=== PATIENT | female | born 2000 | race Caucasian/White ===

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

== ENCOUNTER → 2021-02-03 18:08 | Outpatient (BNVA) | payer MEDICAID, SELFPAY | PROVIDERS: Visit Provider Registered Nurse Neonatal Intensive Care | DX: N39.0 Urinary tract infection, site not specified (principal); R39.9 Unspecified symptoms and signs involving the genitourinary system | CPT/HCPCS: 81000 ==

== ENCOUNTER → 2021-03-26 18:54 | Outpatient (BNVA) | payer MEDICAID, SELFPAY | PROVIDERS: Visit Provider Nurse Practitioner | DX: N39.0 Urinary tract infection, site not specified (principal) | CPT/HCPCS: 81000 ==

== ENCOUNTER → 2021-09-07 19:02 | Outpatient (BNVA) | payer MEDICAID, SELFPAY | PROVIDERS: Visit Provider Nurse Practitioner | DX: J32.9 Chronic sinusitis, unspecified (principal); B96.89 Other specified bacterial agents as the cause of diseases classified elsewhere | CPT/HCPCS: 87400 ==

== ENCOUNTER → 2021-10-25 15:21 | Outpatient (BNVA) | payer MEDICAID, SELFPAY | PROVIDERS: Visit Provider Registered Nurse Neonatal Intensive Care | DX: N39.0 Urinary tract infection, site not specified (principal) | CPT/HCPCS: 81000 ==

== ENCOUNTER 2021-11-01 22:20 | Emergency (ER) | payer MEDICAID, SELFPAY ==
[2021-11-01 22:22] VITALS: BP 125/70; PULSE 103; RESP 18; TEMP 37.1; O2SAT 98
--- NOTE | 2021-11-01 23:41 | ED_ITS ---
HPI - Skin/Abscess/Foreign Bdy General: Chief complaint: Skin/Abscess/Foreign Body Stated complaint: Rash Time Seen by Provider: 11/01/21 23:41 History of Present Illness: Patient comes in for itchy rash that started this evening when she was getting ready for bed. Patient appears mildly unwell but not toxic. Patient is managing her airway. Patient appears in no pain. Associated symptoms: Deny fever(s), nausea or vomiting Review of Systems General: Reports: 10 or more systems reviewed and unremarkable except in HPI and below Const: Denies: fever(s) Card: Denies: chest pain Resp: Denies: dyspnea GI: Denies: nausea or vomiting Skin/Breast: Reports: rash and pruritus PFSH ED PFSH: Family History Mother Diabetes Psychiatric illness Depression Chronic kidney disease (CKD) Hypertension Grandmother No problems noted. Family/Other Stroke maternal aunt Heart disease maternal aunt Denies family history of Colon cancer Ovarian cancer Clotting disorder Hyperlipidemia Breast cancer Anesthesia complication Bleeding disorder Uterine cancer Thyroid condition Social History Smoking and tobacco status: never smoked Second hand smoke exposure: No Alcohol intake: never Desire information about substance/drug rehabilitation?: No Female Reproductive History: Date of last menstrual period: 10/24/21 Physical Exam Const: COMMON NORMALS: alert HENMT: COMMON NORMALS: normocephalic HEAD & SCALP: normocephalic Neck/C-Spine: COMMON NORMALS: full ROM Resp: COMMON NORMALS: normal respiratory effort and clear to auscultation bilaterally AUSCULTATION: clear to auscultation bilaterally Cardio: COMMON NORMALS: regular rate RATE: regular rate Extremity: COMMON NORMALS: normal to inspection Neuro: SENSORIUM/ORIENTATION: Yes alert Skin: RASHES: rashes noted (Urticaria generalized) Course Vital Signs: Vital signs: Vital Signs Temperature 98.8 F 11/01/21 22:22 Pulse Rate 103 H 11/01/21 22:22 Respiratory Rate 18 11/01/21 22:22 Blood Pressure 125/70 11/01/21 22:22 Pulse Oximetry 98 11/01/21 22:22 MDM - Skin/Abscess/Foreign Bdy Medicial Decision Making 21-year-old female comes in today with complaints of itchy rash. Patient states that she had just completed a course of antibiotics and antiviral medication about 3 days ago. Patient states tonight she was getting ready for bed when she started itching. On exam patient has a urticarial rash. The rash is prominent to the abdomen forearms and upper legs. Respirations are even lungs are clear to auscultation. Patient is managing airways without difficulty. Patient denies any nausea or vomiting. Differential diagnosis includes urticaria, adverse drug reaction, anaphylaxis. No signs of anaphylaxis were noted at this time. It appears to be mainly urticarial rash. We will go ahead and treat with antihistamine and recommend calamine and avoidance of heat and spicy foods. Patient reported understanding of care plan, and recommendations to avoid Macrobid in the future. Discharge Plan Discharge Patient Disposition: Home Clinical Impression: Urticaria Adverse drug reaction Qualifiers: Encounter type: initial encounter Qualified Code(s): T50.905A - Adverse effect of unspecified drugs, medicaments and biological substances, initial encounter Condition: Stable Prescriptions: New hydroxyzine HCl 25 mg tablet 25 mg PO Q6H PRN (Reason: itching) Qty: 20 0RF Discontinued nitrofurantoin monohyd/m-cryst [Macrobid] 100 mg capsule 100 mg PO BID 5 Days Qty: 10 0RF Rx Instructions: must administer with a meal/food No Action Tucks (witch myra) 50 % pads, medicated 1 pad topical DAILY PRN (Reason: skin cleansing) Qty: 40 0RF acyclovir 400 mg tablet 400 mg PO TID 10 Days Qty: 30 0RF Discharge Orders: Discharge ED (Routine); Ordered 11/01/21 Ordered By: Umer Erickson Activity Restrictions/Additional Instructions: Most likely this is a reaction to the antibiotic you are on last week for your urinary tract infection. I would avoid this antibiotic in the future for recurrent reaction. Use hydroxyzine 1 tablet 4 times a day as needed for itching. Avoid spicy foods, hot showers, and other extreme temperatures in order to avoid discomfort. Use calamine lotion otherwise for comforting rash. Follow-up with primary care for further instruction. Return to ER for new concerns. Coding Level of Care Code ED Underwriting Consultant for Saul Ch
[2021-11-01] MEDS: diphenhydrAMINE 50 mg Capsule PO (23:54)
[2021-11-02 00:25] VITALS: BP 121/74; PULSE 97; RESP 18; TEMP 36.7; O2SAT 98
== END 2021-11-02 00:30 | disposition home or self-care (01) ==
PROVIDERS: Emergency Provider Nurse Practitioner Family
DX: L50.9 Urticaria, unspecified (principal); T37.8X5A Adverse effect of other specified systemic anti-infectives and antiparasitics, initial encounter
CPT/HCPCS: 99283; Q0163

== ENCOUNTER 2022-11-04 23:05 | Emergency (ER) | payer MEDICAID, SELFPAY ==
[2022-11-04 23:27] VITALS: BP 123/82; PULSE 96; RESP 14; TEMP 36.7; O2SAT 100; BMI 40.0
[2022-11-04 23:59] LABS: Basophils # 0.1 10^3/uL (0.0-0.1); Basophils % 0.7 %; Eosinophils # 0.2 10^3/uL (0.0-0.8); Eosinophils % 2.1 %; Hematocrit 41.4 % (37.0-47.0); Hemoglobin 12.9 g/dL (11.5-15.3); Lymphocytes # 2.5 10^3/uL (0.8-4.8); Lymphocytes % 24.2 %; Mean Corpuscular HGB Conc 31.2 g/dL (30.0-36.0); Mean Corpuscular Hemoglobin 27.1 pg (28.0-34.0); Mean Platelet Volume 9.9 fL (7.4-10.4); Monocytes # 0.6 10^3/uL (0.2-0.9); Monocytes % 5.6 %; Neutrophils # 7.01 10^3/uL (1.8-7.7); Neutrophils % 67.1 %; Nucleated Red Blood Cells % 0 %; Platelet Count 289 10^3/cmm (130-400); Red Blood Count 4.76 10^6/uL (4.1-5.3); Red Cell Distribution Width 13.4 % (12.1-15.1); White Blood Count 10.5 10^3/uL (4.0-10.0)
--- NOTE | 2022-11-05 | CTR_ITS ---
PROCEDURE INFORMATION: Exam: CT Abdomen And Pelvis With Contrast Exam date and time: 11/05/2022 12:33 AM Age: 22 years old Clinical indication: Abdominal pain; Localized; Patient HX: C/O worsening lower abd pain since having bm earlier today. TECHNIQUE: Imaging protocol: Computed tomography of the abdomen and pelvis with contrast. Radiation optimization: All CT scans at this facility use at least one of these dose optimization techniques: automated exposure control; mA and/or kV adjustment per patient size (includes targeted exams where dose is matched to clinical indication); or iterative reconstruction. Contrast material: OMNI 350; Contrast volume: 100 ml; Contrast route: INTRAVENOUS (IV); REPORTING DATA: Count of CT and Cardiac NM exams in prior 12 months: This patient has received 0 known CTs and 0 known cardiac nuclear medicine studies in the 12 months prior to the current study. COMPARISON: US OB BPP wo NST [id number] 12/06/2019 9:47 AM RADIATION DOSE METRICS: Total DLP (mGy-cm): 1036.73 FINDINGS: Lungs: The visualized lung bases are clear. Liver: Unremarkable. No enhancing mass. Gallbladder and bile ducts: No calcified gallstones or biliary dilation identified. Pancreas: Unremarkable with no suspicious mass. No ductal dilation. Spleen: The spleen is not enlarged. No suspicious enhancing mass is noted. Adrenal glands: Normal. No mass. Kidneys and ureters: No solid renal mass or hydronephrosis. Stomach and bowel: No small bowel obstruction or free air. No overt mucosal thickening. The colon is rather fecal filled. Appendix: No evidence of appendicitis. Intraperitoneal space: There is small to moderate pelvic somewhat complex free fluid. Vasculature: No AAA or acute vascular lesion identified. Lymph nodes: No enlarged lymph nodes. Urinary bladder: Unremarkable as visualized. Reproductive: Right ovarian cystic lesion measures about 3 cm. Bones/joints: No acute fracture. Soft tissues: Tiny fat umbilical hernia. CT/CT abdomen pelvis w con* [id number] IMPRESSION: 1. Right ovarian hemorrhagic cyst or follicle with small to moderate complex pelvic free fluid or blood products. If pain persists recommend short-term ultrasound follow-up. 2. No small bowel obstruction, abscess or free air. 3. The colon is rather fecal filled.
--- NOTE | 2022-11-05 00:08 | ED_ITS ---
HPI - Abdominal Pain General: Chief Complaint: Abdominal Pain Stated Complaint: abdomen pain Time Seen by Provider: 11/04/22 23:08 Source: patient Mode of arrival: ambulatory Limitations: no limitations History of Present Illness: 22-year-old female states that she had to start having abdominal pain this evening states it was epigastric and right lower quadrant she thought she may be constipated took some laxative had a bowel movement states that she still has severe pain states much worse with movement she rates her pain a 7 out of 10 denies any dysuria denies any vaginal bleeding she denies any fevers. Associated Symptoms: Denies chills, diarrhea, dysuria, fever(s), nausea and vomiting Review of Systems Const: Denies: fever(s), chills, body aches or change in appetite Eyes: Denies: blurry vision or eye discomfort ENMT: Denies: throat pain or dental pain Card: Denies: chest pain Resp: Denies: dyspnea GI: Reports: abdominal pain; Denies: nausea, vomiting or diarrhea : Denies: dysuria Musc: Denies: neck pain or back pain Skin/Breast: Denies: rash Neuro: Denies: headache(s) PFSH ED PFSH: Family History Mother Diabetes Psychiatric illness Depression Chronic kidney disease (CKD) Hypertension Grandmother No problems noted. Family/Other Stroke maternal aunt Heart disease maternal aunt Denies family history of Colon cancer Ovarian cancer Clotting disorder Hyperlipidemia Breast cancer Anesthesia complication Bleeding disorder Uterine cancer Thyroid condition Social History Smoking and tobacco status: never smoked Second hand smoke exposure: No Alcohol intake: never Substance/Drug Use: never Desire information about substance/drug rehabilitation?: No Physical Exam Const: COMMON NORMALS: no acute distress, patient oriented x3 and healthy appearing HENMT: COMMON NORMALS: normocephalic and atraumatic HEAD & SCALP: normocephalic and atraumatic Eye: COMMON NORMALS: conjunctivae normal CONJUNCTIVA: Yes conjunctivae normal Neck/C-Spine: COMMON NORMALS: full ROM and supple Chest: COMMONS NORMALS: normal inspection of the chest and normal palpation of entire chest wall Resp: COMMON NORMALS: normal respiratory effort, No retractions, No use of accessory muscles and clear to auscultation bilaterally AUSCULTATION: clear to auscultation bilaterally Cardio: COMMON NORMALS: regular rate, regular rhythm and No murmurs present (Cardio) RATE: regular rate RHYTHM: regular rhythm GI: COMMON NORMALS: Normal to inspection, nondistended, normoactive bowel sounds present, Soft to palpation and no masses PALPATION: Yes Soft to palpation OTHER: suprapubic tenderness Extremity: COMMON NORMALS: normal to inspection and full ROM Neuro: COMMON NORMALS: patient oriented x3, moves all extremities and no focal motor deficits Psych: COMMON NORMALS: mental status grossly normal, Normal thought process present and cooperative THOUGHT PROCESS: Normal thought process present Skin: COMMON NORMALS: no rashes or lesions noted and no wounds GENERAL SKIN EXAM: no rashes or lesions noted Course Vital Signs: Vital signs: Vital Signs Temperature 98.1 F 11/05/22 05:07 Pulse Rate 96 11/05/22 05:07 Respiratory Rate 16 11/05/22 05:07 Blood Pressure 118/71 11/05/22 05:07 Pulse Oximetry 96 11/05/22 05:07 Oxygen Delivery Me thod Room Air 11/04/22 23:27 MDM - Abdominal Pain Medical Decision Making Patient presents here with abdominal pain she is found to have a hemorrhagic cyst on CT and ultrasound no signs of torsion her pain has improved ER spoke to OB Dr. Howard with plan of patient having close follow-up he was seen in the office today or tomorrow I did inform her of this informed to call the office and see within 1 to 2 days. She is return if worsening she understands agrees to plan. Medical Records I reviewed the patient's medical records. Lab Data I reviewed the patient's lab results. 11/04/22 23:48 11/04/22 23:48 Labs/Radiology: Radiology Impressions Abdomen/Pelvis CT 11/05/22 00:00 IMPRESSION: 1. Right ovarian hemorrhagic cyst or follicle with small to moderate complex pelvic free fluid or blood products. If pain persists recommend short-term ultrasound follow-up. 2. No small bowel obstruction, abscess or free air. 3. The colon is rather fecal filled. Pelvis Ultrasound 11/05/22 03:58 IMPRESSION: 1. Right ovarian probable 3.6 cm hemorrhagic cyst with associated small to moderate complex pelvic free fluid/blood. Advise appropriate follow-up as indicated. 2. Negative left ovary and uterus. Laboratory Results WBC 10.5 10^3/uL (4.0-10.0) H 11/04/22 23:48 RBC 4.76 10^6/uL (4.1-5.3) 11/04/22 23:48 Hgb 12.9 g/dL (11.5-15.3) 11/04/22 23:48 Hct 41.4 % (37.0-47.0) 11/04/22 23:48 MCV 87.0 fl (81-99) 11/04/22 23:48 MCH 27.1 pg (28.0-34.0) L 11/04/22 23:48 MCHC 31.2 g/dL (30.0-36.0) 11/04/22 23:48 RDW 13.4 % (12.1-15.1) 11/04/22 23:48 Plt Count 289 10^3/cmm (130-400) 11/04/22 23:48 MPV 9.9 fL (7.4-10.4) 11/04/22 23:48 Neut % (Auto) 67.1 % 11/04/22 23:48 Lymph % (Auto) 24.2 % 11/04/22 23:48 [place] % (Auto) 5.6 % 11/04/22 23:48 Eos % (Auto) 2.1 % 11/04/22 23:48 Baso % (Auto) 0.7 % 11/04/22 23:48 Neut # (Auto) 7.01 10^3/uL (1.8-7.7) 11/04/22 23:48 Lymph # (Auto) 2.5 10^3/uL (0.8-4.8) 11/04/22 23:48 [place] # (Auto) 0.6 10^3/uL (0.2-0.9) 11/04/22 23:48 Eos # (Auto) 0.2 10^3/uL (0.0-0.8) 11/04/22 23:48 Baso # (Auto) 0.1 10^3/uL (0.0-0.1) 11/04/22 23:48 Nucleated RBC % (auto) 0 % 11/04/22 23:48 Nucleated RBCs # 0.0 /100WBC 11/04/22 23:48 Sodium 137 mmol/L (136-145) 11/04/22 23:48 Potassium 3.7 mmol/L (3.5-5.1) 11/04/22 23:48 Chloride 102 mmol/L (98-107) 11/04/22 23:48 Carbon Dioxide 25 mmol/L (22-29) 11/04/22 23:48 Anion Gap 13.7 (5-19) 11/04/22 23:48 BUN 13 mg/dL (6-20) 11/04/22 23:48 Creatinine 0.6 mg/dL (0.5-0.9) 11/04/22 23:48 GFR Calculation 126.2 mL/min (90-130) 11/04/22 23:48 Glucose 90 mg/dL (65-115) 11/04/22 23:48 Calculated Osmolality 284 mOsm/kg (285-295) L 11/04/22 23:48 Calcium 9.5 mg/dL (8.5-10.5) 11/04/22 23:48 Total Bilirubin 0.2 mg/dL (0.15-1.2) 11/04/22 23:48 AST 17 U/L (0-32) 11/04/22 23:48 ALT 16 U/L (0-33) 11/04/22 23:48 Alkaline Phosphatase 73 U/L (35-105) 11/04/22 23:48 Total Protein 7.4 g/dL (6.6-8.7) 11/04/22 23:48 Albumin 4.0 g/dL (3.5-5.2) 11/04/22 23:48 Globulin 3.4 g/dL (1.3-4.6) 11/04/22 23:48 Lipase 28 U/L (13-60) 11/04/22 23:48 HCG, Qual Negative (Negative) 11/04/22 23:48 Urine Color Yellow (Yellow) 11/05/22 00:57 Urine Appearance Clear (CLEAR) 11/05/22 00:57 Urine pH 6 (5-7) 11/05/22 00:57 Ur Specific [place] 1.020 (1.005-1.030) 11/05/22 00:57 Urine Protein Neg (Negative) 11/05/22 00:57 Urine Glucose (UA) Norm (Normal) 11/05/22 00:57 Urine Ketones Negative (Negative) 11/05/22 00:57 Urine Blood Neg (Negative) 11/05/22 00:57 Urine Nitrate Negative (Negative) 11/05/22 00:57 Urine Bilirubin Neg (Negative) 11/05/22 00:57 Urine Urobilinogen Neg mg/dL (Negative) 11/05/22 00:57 Ur Leukocyte Esterase Trace (Negative) H 11/05/22 00:57 Urine RBC None /hpf (0-2) 11/05/22 00:57 Urine WBC 5-10 /hpf (0-5) H 11/05/22 00:57 Ur Squamous Epith Cells 10-15 /hpf (0-5) H 11/05/22 00:57 Amorphous Sediment Not Reportable 11/05/22 00:57 Urine Bacteria 1+ /hpf (NONE) H 11/05/22 00:57 Urine Mucus 2+ /hpf 11/05/22 00:57 Discharge Plan Discharge Patient Disposition: Home Clinical Impression: Hemorrhagic cyst of ovary Condition: Stable Prescriptions: New hydrocodone-acetaminophen 5-325 mg tablet 1 tab PO Q6H PRN (Reason: pain) Qty: 14 0RF ondansetron 4 mg tablet,disintegrating 4 mg PO Q6H PRN (Reason: nausea and vomiting) Qty: 14 0RF Discharge Orders: Discharge ED (Routine); Ordered 11/05/22 Ordered By: Chana Ness Referrals: Maverick Howard MD [Physician] - 1-3 days Stallings,ARMANI Burt [Primary Care Provider] - Discharge Diet: Advance as tolerated Discharge Activity: Resume usual activity Patient Instructions: Ovarian Cyst (ED) Coding Level of Care Code ED Airframe And Powerplant Mechanic for Saul Ch
[2022-11-05 00:18] LABS: HCG, Serum Qual Negative (Negative)
[2022-11-05 00:25] LABS: Alanine Aminotransferase 16 U/L (0-33); Alkaline Phosphatase 73 U/L (35-105); Anion Gap 13.7 (5-19); Aspartate Amino Transferase 17 U/L (0-32); Blood Urea Nitrogen 13 mg/dL (6-20); Calcium 9.5 mg/dL (8.5-10.5); Carbon Dioxide 25 mmol/L (22-29); Chloride 102 mmol/L (98-107); Globulin 3.4 g/dL (1.3-4.6); Glomerular Filtration Rate 126.2 mL/min (90-130); Glucose 90 mg/dL (65-115); Lipase 28 U/L (13-60); Osmolality Calculated 284 mOsm/kg (285-295); Potassium 3.7 mmol/L (3.5-5.1); Sodium 137 mmol/L (136-145); Total Bilirubin 0.2 mg/dL (0.15-1.2); Total Protein 7.4 g/dL (6.6-8.7)
[2022-11-05] MEDS: morphine 4 mg/mL SDV 1 mL IVP ×2 (00:28→04:05)
[2022-11-05] MEDS: ondansetron 2 mg/ML SDV 2 mL 4 MG IVP (00:28)
[2022-11-05] MEDS: iohexol 350 mg/mL 500 mL Btl (per mL) IV (00:37)
[2022-11-05 01:07] LABS: Add Urine Microscopic? YES; Bilirubin Urine Neg (Negative); Blood Urine Neg (Negative); Glucose Urine UA Norm (Normal); Ketones Urine Negative (Negative); Leukocyte Esterase Urine Trace (Negative); Nitrate Urine Negative (Negative); Protein Urine Neg (Negative); Urine Appearance Clear (CLEAR); Urine Color Yellow (Yellow); Urobilinogen Urine Neg (Negative); pH Urine 6 (5-7)
[2022-11-05 01:08] LABS: Add Urine Culture? No; Bacteria Urine 1+ /hpf; Mucus Urine 2+ /hpf
[2022-11-05 03:06] VITALS: BP 118/71; PULSE 96; RESP 16; O2SAT 96
[2022-11-05 03:10] VITALS: BP 135/85; PULSE 89; RESP 16; O2SAT 95
[2022-11-05 03:30] VITALS: BP 118/71; PULSE 95; RESP 16; O2SAT 96
--- NOTE | 2022-11-05 03:58 | USR_ITS ---
PROCEDURE INFORMATION: Exam: US Pelvis Complete, Transabdominal and US Pelvis, Transvaginal Exam date and time: 11/05/2022 4:18 AM Age: 22 years old Clinical indication: Abdominal pain and pelvic pain; Right lower quadrant; Patient HX: G1-p1 female with reported lmp of 10/11/22 with 7 out of 10 abdominal and rlq pain tonight. F/u CT = RT hemorrhagic cyst. ; Additional info: Right lower abdominal pain hemorrhagic cyst TECHNIQUE: Imaging protocol: Real-time complete transabdominal and transvaginal pelvic ultrasound with image documentation. Transvaginal imaging was used for better evaluation of the endometrium, adnexa, and/or cervix. COMPARISON: CT abdomen pelvis w con* [id number] 11/05/2022 12:33 AM FINDINGS: Uterus: Uterus is retroflexed, normal. Endometrial stripe is normal. Right ovary/adnexa: Right ovary is mildly enlarged and contains a complex cyst measuring 36 x 15 x 31 mm. No torsion. Left ovary/adnexa: Ovary is normal. No mass. Normal ovarian blood flow. Intraperitoneal space: Llpo-lw-ejxhqjbo complex pelvic free fluid/blood. Urinary bladder: Normal. US/US pelvic complete* [id number] IMPRESSION: 1. Right ovarian probable 3.6 cm hemorrhagic cyst with associated small to moderate complex pelvic free fluid/blood. Advise appropriate follow-up as indicated. 2. Negative left ovary and uterus.
[2022-11-05 04:01] VITALS: BP 134/99
[2022-11-05 05:07] VITALS: BP 118/71; PULSE 96; RESP 16; TEMP 36.7; O2SAT 96
--- NOTE | 2022-11-05 07:56 | PC.NURSE ---
Addendum entered by Trixie Olson 11/12/22 10:50: Patient had a follow up appointment scheduled with Dr. Howard at [facility] - patient did attend appointment. Addendum entered by Nandini Avila RN 11/05/22 15:04: Patient scheduled to see Dr Howard for follow up 11/06/22, patient is aware//JS Original Note: Patient seen in the ED on 11/05/22 and referred for hemmoragic cyst to [facility]. TCM sent message to call pt with an appt.
== END 2022-11-05 05:08 | disposition home or self-care (01) ==
PROVIDERS: Emergency Provider Emergency Medicine; PCP Nurse Practitioner Family
DX: N83.201 Unspecified ovarian cyst, right side (principal)
CPT/HCPCS: 74177; 76856; 80053; 81001; 83690; 84703; 85025; 96374; 96375; 96376; 99285; J2270; J2405; Q9967

== ENCOUNTER → 2023-04-10 10:10 | Outpatient (BNVA) | payer MEDICAID, SELFPAY | PROVIDERS: PCP Nurse Practitioner Family; Visit Provider Nurse Practitioner Women's Health | DX: Z30.9 Encounter for contraceptive management, unspecified (principal); Z01.419 Encounter for gynecological examination (general) (routine) without abnormal findings; Z30.430 Encounter for insertion of intrauterine contraceptive device | CPT/HCPCS: 81025 ==

== ENCOUNTER → 2023-04-11 11:15 | Outpatient (BNVA) | payer MEDICAID, SELFPAY | PROVIDERS: PCP Nurse Practitioner Family; Visit Provider Nurse Practitioner Women's Health | DX: Z30.9 Encounter for contraceptive management, unspecified (principal); Z01.419 Encounter for gynecological examination (general) (routine) without abnormal findings; Z30.430 Encounter for insertion of intrauterine contraceptive device | CPT/HCPCS: 88175 ==

== ENCOUNTER → 2023-05-20 13:20 | Outpatient (BNVA) | payer OTHER, SELFPAY | PROVIDERS: PCP Nurse Practitioner Family; Visit Provider Nurse Practitioner Family | DX: R43.2 Parageusia (principal); J06.9 Acute upper respiratory infection, unspecified | CPT/HCPCS: 87426 ==

== ENCOUNTER → 2023-10-27 16:14 | Outpatient (BNVA) | payer OTHER, SELFPAY | PROVIDERS: PCP Nurse Practitioner Family; Visit Provider Registered Nurse Neonatal Intensive Care | DX: M25.571 Pain in right ankle and joints of right foot (principal) | CPT/HCPCS: 73610 ==

== ENCOUNTER → 2023-12-30 17:32 | Outpatient (BNVA) | payer OTHER, SELFPAY | PROVIDERS: PCP Nurse Practitioner Family; Visit Provider Nurse Practitioner | DX: R39.9 Unspecified symptoms and signs involving the genitourinary system (principal) | CPT/HCPCS: 81000 ==

== ENCOUNTER → 2024-11-08 13:24 | Outpatient (BNVA) | payer OTHER, SELFPAY | PROVIDERS: PCP Nurse Practitioner Family | DX: R39.9 Unspecified symptoms and signs involving the genitourinary system (principal) | CPT/HCPCS: 81000 ==

== ENCOUNTER 2024-11-24 14:26 | Emergency (ER) | payer OTHER, SELFPAY ==
[2024-11-24 14:37] VITALS: BP 147/90; PULSE 107; RESP 18; TEMP 36.8; O2SAT 96; BMI 48.6
[2024-11-24 16:12] VITALS: BP 124/80; PULSE 92; RESP 18; O2SAT 94
--- NOTE | 2024-11-24 16:19 | W.ED.FEMALGU ---
HPI - Female Genitourinary General: Chief complaint: Urogenital-Female Stated complaint: abd pain Time Seen by Provider: 11/24/24 16:11 History of Present Illness: 24-year-old female presents emergency room with a complaint of left flank pain. She was seen yesterday at [place] emergency room CT was done she is found to have a 5 mm left ureterolithiasis. Evidently they called in some pain medications but she is not able to get to them and I called them into a distant pharmacy. Her pain has been uncontrolled she has not been taking anything and she wanted to get refills of her medications. She was directed back to the nearest emergency room for medications previous emergency room declined to resend them to a different pharmacy. She denies any fever sweats or chills she does not recall them telling her she had a bladder infection last night when she was seen. Associated symptoms: Deny abdominal pain Related Data Home Medications ?Medication ?Instructions ?Recorded ?Confirmed levonorgestrel (Mirena) 1 device intrauterine .Q8Y 06/05/23 11/24/24 tirzepatide 2.5 mg/0.5 mL 20 mg SUBCUT 11/08/24 11/08/24 subcutaneous pen injector (Mounjaro) tirzepatide 10 mg/0.5 mL See Rx Instructions .Route .COMPLEX 11/24/24 11/24/24 subcutaneous pen injector (Mounjaro) Previous Rx's ?Medication ?Instructions ?Recorded cefdinir 300 mg capsule 300 mg PO BID 5 days #10 caps 11/24/24 hydrocodone 5 mg-acetaminophen 325 1 tab PO Q6H PRN pain #20 tabs 11/24/24 mg tablet naloxone 4 mg/actuation nasal 4 mg intranasal Q2M PRN opioid 11/24/24 spray (Narcan) overdose #2 ea promethazine 25 mg tablet 25 mg PO Q6H PRN nausea and 11/24/24 vomiting #20 tabs tamsulosin 0.4 mg capsule 0.4 mg PO DAILY #20 caps 11/24/24 Allergies Allergy/AdvReac Type Severity Reaction Status Date / Time nitrofurantoin (From Allergy Mild ALGY-Hives Verified 11/24/24 14:43 Macrobid) Review of Systems Const: Denies: fever(s) or chills Card: Denies: chest pain Resp: Denies: dyspnea GI: Denies: abdominal pain : Denies: dysuria, urinary frequency or urinary urgency Musc: Denies: neck pain or back pain Skin/Breast: Denies: rash PFSH ED PFSH: Family History Mother Diabetes Psychiatric illness Depression Chronic kidney disease (CKD) Hypertension Grandmother No problems noted. Family/Other Stroke maternal aunt Heart disease maternal aunt Denies family history of Colon cancer Ovarian cancer Clotting disorder Hyperlipidemia Breast cancer Anesthesia complication Bleeding disorder Uterine cancer Thyroid disease Social History Smoking and tobacco/nicotine status: never used tobacco/nicotine Second hand smoke exposure: No Alcohol intake: never Substance/Drug Use: never Physical Exam Const: GENERAL APPEARANCE: cooperative ORIENTATION/CONSCIOUSNESS: Yes awake, Yes oriented to person, Yes oriented to place and Yes oriented to time HENMT: COMMON NORMALS: normocephalic, atraumatic and hearing grossly normal bilaterally HEAD & SCALP: normocephalic and atraumatic Resp: COMMON NORMALS: normal respiratory effort, No retractions, No use of accessory muscles and clear to auscultation bilaterally AUSCULTATION: clear to auscultation bilaterally Cardio: COMMON NORMALS: regular rate, regular rhythm and No murmurs present (Cardio) RATE: regular rate RHYTHM: regular rhythm GI: COMMON NORMALS: Soft to palpation and No hepatosplenomegaly present AUSCULTATION: Yes normoactive bowel sounds PALPATION: Yes Soft to palpation, No Tenderness to palpation present (GI), No Guarding due to palpation present (GI) and Yes No hepatosplenomegaly present Extremity: COMMON NORMALS: normal to inspection, capillary refill normal, no clubbing, cyanosis or edema, no calf tenderness and no pedal edema Neuro: SENSORIUM/ORIENTATION: Yes oriented to person, Yes oriented to place and Yes oriented to time Skin: COMMON NORMALS: no rashes or lesions noted GENERAL SKIN EXAM: no rashes or lesions noted Course Vital Signs: Vital signs: Vital Signs Temperature 98.2 F 11/24/24 14:37 Pulse Rate 91 11/24/24 18:34 Respiratory Rate 16 11/24/24 18:00 Blood Pressure 109/64 11/24/24 18:34 Pulse Oximetry 100 11/24/24 18:34 MDM - Female Medical Decision Making Left nephrolithiasis pain controlled with medications. Discharge patient home on tamsulosin feeling hydrocodone promethazine he also has a mild bladder infection associated with this is not certainly not septic this time does not require inpatient treatment given Rocephin and discharged home with oral antibiotics will refer to urology Lab Data 11/24/24 16:30 11/24/24 16:30 Laboratory Results WBC 7.63 10^3/uL (3.29-11.43) 11/24/24 16:30 RBC 4.74 10^6/uL (3.85-5.65) 11/24/24 16:30 Hgb 13.20 g/dL (11.27-16.99) 11/24/24 16:30 Hct 41.5 % (36-47) 11/24/24 16:30 MCV 87.6 fl (85-98) 11/24/24 16:30 MCH 27.8 pg (27-33) 11/24/24 16:30 MCHC 31.8 g/dL (30-55) 11/24/24 16:30 RDW 13.6 % (12.1-15.1) 11/24/24 16:30 Plt Count 236 10^3/cmm (157-399) 11/24/24 16:30 MPV 10.1 fL (7.4-10.4) 11/24/24 16:30 Neut % (Auto) 59.5 % 11/24/24 16:30 Lymph % (Auto) 31.2 % 11/24/24 16:30 Stephens % (Auto) 5.8 % 11/24/24 16:30 Eos % (Auto) 2.4 % 11/24/24 16:30 Baso % (Auto) 0.7 % 11/24/24 16:30 Neut # (Auto) 4.55 10^3/uL (1.8-7.7) 11/24/24 16:30 Lymph # (Auto) 2.4 10^3/uL (0.8-4.8) 11/24/24 16:30 Stephens # (Auto) 0.4 10^3/uL (0.2-0.9) 11/24/24 16:30 Eos # (Auto) 0.2 10^3/uL (0.0-0.8) 11/24/24 16:30 Baso # (Auto) 0.1 10^3/uL (0.0-0.1) 11/24/24 16:30 Nucleated RBC % (auto) 0 % 11/24/24 16:30 Nucleated RBCs # 0.0 /100WBC 11/24/24 16:30 Sodium 138 mmol/L (136-145) 11/24/24 16:30 Potassium 3.8 mmol/L (3.5-5.1) 11/24/24 16:30 Chloride 106 mmol/L (98-107) 11/24/24 16:30 Carbon Dioxide 21 mmol/L (22-29) L 11/24/24 16:30 Anion Gap 14.8 (5-19) 11/24/24 16:30 BUN 11 mg/dL (6-20) 11/24/24 16:30 Creatinine 0.6 mg/dL (0.5-0.9) 11/24/24 16:30 GFR Calculation 123.9 mL/min (90-130) 11/24/24 16:30 Glucose 82 mg/dL (65-115) 11/24/24 16:30 Calculated Osmolality 284 mOsm/kg (285-295) L 11/24/24 16:30 Calcium 9.2 mg/dL (8.5-10.5) 11/24/24 16:30 Total Bilirubin 0.4 mg/dL (0.15-1.2) 11/24/24 16:30 AST 16 U/L (0-32) 11/24/24 16:30 ALT 16 U/L (0-33) 11/24/24 16:30 Alkaline Phosphatase 75 U/L (35-105) 11/24/24 16:30 Total Protein 7.5 g/dL (6.6-8.7) 11/24/24 16:30 Albumin 4.2 g/dL (3.5-5.2) 11/24/24 16:30 Globulin 3.3 g/dL (1.3-4.6) 11/24/24 16:30 Urine Color Yellow (Yellow) 11/24/24 16:30 Urine Appearance Cloudy (CLEAR) A 11/24/24 16:30 Urine pH 5.5 (5-7) 11/24/24 16:30 Ur Specific [place] 1.019 (1.005-1.030) 11/24/24 16:30 Urine Protein Negative (Negative) 11/24/24 16:30 Urine Glucose (UA) Negative (Normal) 11/24/24 16:30 Urine Ketones 1+ (Negative) H 11/24/24 16:30 Urine Blood 2+ (Negative) A 11/24/24 16:30 Urine Nitrate Negative (Negative) 11/24/24 16:30 Urine Bilirubin Negative (Negative) 11/24/24 16:30 Urine Urobilinogen 0.2 mg/dL (Negative) 11/24/24 16:30 Ur Leukocyte Esterase 2+ (Negative) A 11/24/24 16:30 Urine RBC 21-50 /hpf (0-2) H 11/24/24 16:30 Urine WBC 21-50 /hpf (0-5) H 11/24/24 16:30 Ur Squamous Epith Cells 6-10 /hpf (0-5) 11/24/24 16:30 Amorphous Sediment Not Reportable 11/24/24 16:30 Urine Bacteria 1+ /hpf (NONE) H 11/24/24 16:30 Hyaline Casts 0-4 /lpf H 11/24/24 16:30 All radiology interpretation(s) finalized by discharge Discharge Plan Discharge Patient Disposition: Home Clinical Impression: Left nephrolithiasis Condition: Stable Prescriptions: New hydrocodone-acetaminophen 5-325 mg tablet 1 tab PO Q6H PRN (Reason: pain) Qty: 20 0RF promethazine 25 mg tablet 25 mg PO Q6H PRN (Reason: nausea and vomiting) Qty: 20 0RF tamsulosin 0.4 mg capsule 0.4 mg PO DAILY Qty: 20 0RF cefdinir 300 mg capsule 300 mg PO BID 5 Days Qty: 10 0RF naloxone [Narcan] 4 mg/actuation spray,non-aerosol 4 mg intranasal Q2M PRN (Reason: opioid overdose) Qty: 2 0RF Rx Instructions: spray 1 dose into ONE nostril; alternate nostrils w each dose until help arrives No Action Mirena 21 mcg/24 hours (8 yrs) 52 mg intrauterine device 1 device intrauterine .Q8Y Mounjaro 2.5 mg/0.5 mL pen injector 20 mg SUBCUT Mounjaro 10 mg/0.5 mL Pen Injector See Rx Instructions .ROUTE .COMPLEX Rx Instructions: Give 15 units (3mg) subcutaneously every 7 days on Fridays Discharge Orders: Discharge ED (Routine); Ordered 11/24/24 Ordered By: Gabriel Soto Referrals: Graham Sosa MD [Primary Care Provider, [facility]] Discharge Diet: Usual diet Discharge Activity: Increase activity as tolerated Patient Instructions: Kidney Stones (ED), How to Strain Your Urine (ED), Opioid Safety, Pain Management Activity Restrictions/Additional Instructions: Thank you for choosing [facility] for your healthcare needs today. It is very important that you follow up as instructed or that you return to the Emergency Department should you have concerns or if your condition changes or worsens in any way. You were seen in the emergency room with complaints of left flank pain related to nephrolithiasis. We were able to review the CT that was done at [place]. That showed a 5 mm proximal left ureter. Your white count was not elevated. Recommend you start tamsulosin 1 tablet daily this will help the stone pass sooner. Give the hydrocodone promethazine for pain and nausea to use as needed. Case management make arrangements for you to follow-up with your urologist Print Language: [place] Islander Coding Level of Care Code ED Cattle [place] for Saul Ch
[2024-11-24 16:54] LABS: Bilirubin Urine Negative (Negative); Blood Urine 2+ (Negative); Glucose Urine UA Negative (Normal); Ketones Urine 1+ (Negative); Leukocyte Esterase Urine 2+ (Negative); Nitrate Urine Negative (Negative); Protein Urine Negative (Negative); Specific Gravity, Urine 1.019 (1.005-1.030); Urine Appearance Cloudy (CLEAR); Urine Color Yellow (Yellow); Urobilinogen Urine 0.2 mg/dL (Negative); pH Urine 5.5 (5-7)
[2024-11-24 16:55] LABS: Basophils # 0.1 10^3/uL (0.0-0.1); Basophils % 0.7 %; Eosinophils # 0.2 10^3/uL (0.0-0.8); Eosinophils % 2.4 %; Hematocrit 41.5 % (36-47); Lymphocytes # 2.4 10^3/uL (0.8-4.8); Lymphocytes % 31.2 %; Mean Corpuscular HGB Conc 31.8 g/dL (30-55); Mean Corpuscular Hemoglobin 27.8 pg (27-33); Mean Corpuscular Volume 87.6 fl (85-98); Mean Platelet Volume 10.1 fL (7.4-10.4); Monocytes # 0.4 10^3/uL (0.2-0.9); Monocytes % 5.8 %; Neutrophils # 4.55 10^3/uL (1.8-7.7); Neutrophils % 59.5 %; Nucleated Red Blood Cells % 0 %; Platelet Count 236 10^3/cmm (157-399); Red Blood Count 4.74 10^6/uL (3.85-5.65); Red Cell Distribution Width 13.6 % (12.1-15.1); White Blood Count 7.63 10^3/uL (3.29-11.43)
[2024-11-24 16:57] LABS: Add Urine Microscopic? YES; Bacteria Urine 1+ /hpf; Hyaline Casts Urine 0-4 /lpf; RBC Urine 21-50 /hpf (0-2); WBC Urine 21-50 /hpf (0-5)
[2024-11-24 17:00] VITALS: BP 110/75; PULSE 89; RESP 16; O2SAT 98
[2024-11-24] MEDS: ondansetron 2 mg/ML SDV 2 mL 4 MG IVP (17:09)
[2024-11-24] MEDS: morphine 4 mg/mL SDV 1 mL IVP (17:09)
[2024-11-24] MEDS: ketorolac 30 mg/mL INJ IVP (17:09)
[2024-11-24] MEDS: sodium chloride 0.9% 1,000 ML 999 ML IV (17:10)
[2024-11-24 17:13] LABS: Add Urine Culture? Yes
[2024-11-24 17:15] LABS: Alanine Aminotransferase 16 U/L (0-33); Albumin Level 4.2 g/dL (3.5-5.2); Alkaline Phosphatase 75 U/L (35-105); Anion Gap 14.8 (5-19); Aspartate Amino Transferase 16 U/L (0-32); Blood Urea Nitrogen 11 mg/dL (6-20); Calcium 9.2 mg/dL (8.5-10.5); Carbon Dioxide 21 mmol/L (22-29); Chloride 106 mmol/L (98-107); Creatinine Clr Calc Pharmacy 180.3047; Globulin 3.3 g/dL (1.3-4.6); Glomerular Filtration Rate 123.9 mL/min (90-130); Glucose 82 mg/dL (65-115); Osmolality Calculated 284 mOsm/kg (285-295); Potassium 3.8 mmol/L (3.5-5.1); Sodium 138 mmol/L (136-145); Total Bilirubin 0.4 mg/dL (0.15-1.2); Total Protein 7.5 g/dL (6.6-8.7)
[2024-11-24 18:00] VITALS: BP 109/64; PULSE 91; RESP 16; O2SAT 95
[2024-11-24] MEDS: cefTRIAXone 1,000 mg SDV 1000 MG IVP (18:19)
[2024-11-24 18:34] VITALS: BP 109/64; PULSE 91; O2SAT 100
--- NOTE | 2024-11-25 11:14 | DCPLANNER ---
faxed referral packet to [facility]
== END 2024-11-24 18:36 | disposition home or self-care (01) ==
PROVIDERS: Emergency Provider Family Medicine; PCP Family Medicine
DX: N20.0 Calculus of kidney (principal); Z79.85 Long-term (current) use of injectable non-insulin antidiabetic drugs
CPT/HCPCS: 36415; 80053; 81001; 85025; 87086; 96361; 96374; 96375; 99284; J0696; J1885; J2270; J2405; J7030

== ENCOUNTER 2025-02-19 22:53 | Emergency (ER) | payer OTHER, SELFPAY ==
--- OUTSIDE RECORDS SUMMARY | 2022-05-21 05:00 | XMS_ITS | Continuity of Care Document ---
Author Organization [facility] Address [address] [id number] [address] Phone Care Team Providers Care Blood Splatter Analyst Name Role Phone Chauncey Ridley DDS Unavailable Unavailabl e Allergies, Adverse Reactions, Alerts Substance Reaction Status Criticality NITROFURANTOIN MACROCRYSTALLINE Active No Information nitrofurantoin Active No Informatio n No Known Allergies Resolved No Inform ation Medications Medication Instructions Dosage Effective Dates (start - stop) Status Comments chlorhexidine gluconate 0.12 % mouthwash place 15 milliliter by mouth (after meals), swish one minute then spit out as needed - Active Start on 3rd day after surgery, use salt/water first 3 days. clonazepam 1 mg tablet Take 1 (one) tablet 1 (one) hour prior to procedure. - Active ibuprofen 800 mg tablet take 1 tablet by oral route 3 times every day with food as needed 800 MG - Active Anti-inflammat ory caused by Oral Surgery, Do not used more than 3000mg per day. hydrocodone 5 mg-acetaminophen 325 mg tablet take 1 tablet by oral route every 6 hours as needed for pain as needed 1.00 tablet - Active phentermine 30 mg capsule take 1 capsule by oral route every day before breakfast 30 MG - Active Xulane 150 mcg-35 mcg/24 hr transdermal patch apply 1 patch by transdermal route every week 1.00 patch - Active Procedures Procedure Date Extraction, Erupted Tooth Or Exposed Sherie t (Elevati Extraction, Erupted Tooth Or Exposed Sherie t (Elevati Non-Intravenous Conscious Sedation EDR Approval Note Limited Oral Evaluation Problem Focused EDR Approval Note X-RAY ELBOW - 3 VIEWS EST-EXP PROB FOC/LOW COMPLEXITY 009 EST-PROB FOC/STR FORWARD PREVENT-EST, 5- EST-PROB FOC/STR FORWARD STREP A ASSAY W/OPTIC EST-PROB FOC/STR FORWARD FLU VACCINE 3 & >, IM NEW-EXP PROB FOC/STR FORWARD STREP A ASSAY W/OPTIC Advance Directives Directive Yes / No Effective Date File Name No Information Encounters Encounter Description Practice Location Reason(s) For Visit Diagnoses Date Provider Providers Copied on Encounter [facility], [id number] [place], [place], [id number], [place] tel:[phone] [facility] No Information 2 Khai Grossman. [address] [place] [address], [address], [place]. tel:[phone] Referring Provider: Chauncey Ridley, [address] [place] [address], [address]. tel:[phone] [facility], [id number] [place], [id number], [place] tel:[phone] [facility] No Information 2 Khai Grossman. [address] [place] [address], [address], [place]. tel:[phone] Referring Provider: Chauncey Ridley, [address] [place] [address], [address]. tel:[phone] [facility], [id number] [place], [id number], [place] tel:[phone] Family Medicine F1 No Information 9 No Information EST-EXP PROB FOC/LOW COMPLEXITY [facility], [id number] [place], [id number], [place] tel:[phone] Family [facility] F1 No Information 9 No Information EST-PROB FOC/STR FORWARD [facility], [id number], [id number], [place] tel:[phone] Family [facility] F1 No Information 8 No Information PREVENT-EST, 10-24 [facility], [id number] [place], [address], [place] tel:[phone] Family Medicine F1 No Information 8 No Information EST-PROB FOC/STR FORWARD [facility], [id number] [place], [id number], [place] tel:[phone] Family Medicine F1 No Information 8 No Information EST-PROB FOC/STR FORWARD [facility], [id number] [place], [id number], [place] tel:[phone] Family Medicine F1 No Information 8 No Information NEW-EXP PROB FOC/STR FORWARD [facility], [id number] [place], [id number], [place] tel:[phone] Family Medicine F1 No Information 8 No Information Family History Family Member Type Diagnosis Age At Onset No Information Immunizations Vaccine Date Status Comments FLU VACCINE 3 & >, IM administered Source : Source Unspecified Payers Payer name Insurance type Covered constitution party ID Rufino martínez(s) D [employer] CI [id number] Social History Type Description Quantity Date Captured Comments Alcohol Use Details No Caffeine Use Details Unknown Tobacco Use Status No Information Smoking Status No Information Sex Female Sexual Orientation Heterosexual Gender Identity Female Chief Complaint And Reason For Visit No Information Reason For Referral Reason For Referral No Information History Of Present Illness Encounter Date Complaint History Of Prese nt Illness No Information Functional Status Date Functional Assessmen t No Information Instructions Date Instruction Additional Infor mation No Information Assessments Type Assessment Date No Information Patient Care Teams Name Effective Dates (start - stop) Status Members No Information
--- OUTSIDE RECORDS SUMMARY | 2023-08-19 13:15 | XMS_ITS | Continuity of Care Document ---
Author Organization [facility] Address [address] [place] [address] Phone Care Team Providers Care Street Light Inspector Name Role Phone Mirtha Young Unavailable Unavailable Allergies, Adverse Reactions, Alerts Substance Reaction Status Criticality NITROFURANTOIN MACROCRYSTALLINE Active No Information nitrofurantoin Active No Informatio n Medications Medication Instructions Dosage Effective Dates (start - stop) Status Comments PHENTERMINE HCL (unknown strength) take 1 capsule by oral route every day before breakfast Not Available - Active Procedures Procedure Date Simpl Repr Sclp/trunk; 2.6-7.5 24 Surgical Trays Offic/outpt E&m [facility] 4 Services provided in an urgent care cent er Advance Directives Directive Yes / No Effective Date File Name No Information Encounters Encounter Description Practice Location Reason(s) For Visit Diagnoses Date Provider Providers Copied on Encounter Offic/outpt E&m [facility], [address], [place], [place], [id number], [place] tel:[phone] [facility] Laceration (chief complaint) Laceration of right ankle, initial encounter Marshal Shannon. [address], [place], [id number], [place]. tel:[phone] Referring Provider: Mirtha DEE, [address], [place], [address] . tel:[phone] Family History Family Member Type Diagnosis Age At Onset No Information Payers Payer name Insurance type Covered democrat ID Rufino martínez(s) [facility] [id number] Social History Type Description Quantity Date Captured Comments Alcohol Use Details No Caffeine Use Details Unknown Tobacco Use Status Current non-smoker Smoking Status Never smoker Non-Smoking Tobacco Use Details : No Details Available : No Details Available Sex Female Vital Signs Date / Time: Height Weight BMI Pulse Rate Blood Pressure Temperature Respiratory Rate Body Surface Area Head Circumference Head Circ. Percentile Wt./Zia. Percentile BMI percentile Pulse Ox Inhaled Ox 5:30 PM 63.00 in 108.862 kg (240.00 lbs) 42.5 1 kg/m eter (2) 93 /min 134/82 mm[Hg] 98.06 F 16 /min 100 % 21 % Chief Complaint And Reason For Visit From encounter dated '08/19/2023 18:15'. Laceration (chief complaint). Description: This is an initial visit. The injury occurred 1 day ago.Symptoms related to the laceration remain unchanged. A trauma occurred (LACERATION ANKLE) doing recreational activities approximately 1 day ago. The patient has a laceration on the right ankle, measuring 5.0000 by 1.0000 cm and is described as jagged. The injury is aggravated by movement. The patien t had a response to splint. The patient denies any pertinent negatives. Reason For Referral Reason For Referral No Information History Of Present Illness Encounter Date Complaint History Of Prese nt Illness Laceration This is an initi al visit. The injury occurred 1 day ago. Symptoms related to the laceration remain unchanged. A trauma occurred (LACERATION ANKLE) doing recreational activities approximately 1 day ago. The patient has a laceration on the right ankle, measuring 5.0000 by 1.0000 cm and is described as jagged. The injury is aggravated by movement. The patient had a response to splint. The patient denies any pertinent negatives. Functional Status Date Functional Assessmen t No Information Instructions Date Instruction Additional Infor mation PCP 1-2 days or ER i f worsens. STAPLE REMOVAL 7-10 DAYS. FOR PAIN OR FEVER, TAKE TYLENOL (ACETOMINOPHEN) EVERY 4-6 HOURS AND/OR IBUPROFEN (MOTRIN, ADVIL) EVERY 6-8 HOURS. REST AND FLUIDS. WATCH CLOSELY FOR THESE SIGNS OF INFECTION: REDNESS; DRAINAGE/PUS; WARMTH AT SITE OR GENERAL FEVER; SWELLING; RED STREAKS; INCREASING PAIN. RETURN TO THE CLINIC OR GO TO THE EMERGENCY ROOM IF THESE SYMPTOMS DEVELOP. KEEP DRESSING CLEAN AND DRY. DO NOT IMMERSE WOUND ( IN DISHWATER) HOWEVER YOU MAY SHOWER, ETC AFTER 24 HOURS. LEAVE INITIAL DRESSING IN PLACE TODAY, THEN REMOVE AND USE A NEW DRY DRESSING EACH DAY UNTIL WELL HEALING. YOU MAY APPLY SMALL AMOUNT OF BACITRACIN OR NEOSPORIN TO YOUR WOUND THE FIRST 2-3 DAYS WHENEVER YOU CHANGE YOUR DRESSING/BANDAID. DO NOT APPLY A TOPICAL ANTIBIOTIC OR OTHER WOUND CARE PRODUCT AFTER THE 3RD DAY. Related to Laceration of right ankle, initial encounter Assessments Type Assessment Date assessment Laceration of right ankle, initi al encounter Mental Status Date Cognitive Assessment Orientation - [place] ed to time, place, person, situation. Patient Care Teams Name Effective Dates (start - stop) Status Members No Information
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
[2025-02-19 22:58] VITALS: BP 123/89; PULSE 123; RESP 20; TEMP 36.7; O2SAT 100; BMI 44.1
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
--- OUTSIDE RECORDS SUMMARY | 2025-02-19 23:03 | XMS_ITS | Clinical Summary ---
Author Organization [facility] [place] Address [address] [place]: Epic Prelude ADT [place] [address] Care Team Providers Care Athletics Director Name Role Phone Loraine Messina Primary Care Provide r Unavailable Allergies Active Allergy Reactions Criticality Noted Date Comments Nitrofurantoin Monohyd/M-Cryst Hives High 11/23 Medications tirzepatide, weight loss, (ZEPBOUND) 10 mg/0.5 mL Pen Injector Inject 20 mg by subcutaneous injection every 7 days. Active lidocaine (LIDODERM) 5 % Adhesive Patch, Medicated Apply 1 Patch to affected area every 24 hours. Active ibuprofen (MOTRIN) 800 mg tablet Take 1 Tablet (800 mg) by mouth every 8 hours as needed for Pain. 30 Tablet 5 Active HYDROcodone-jeronimo taminophen (NORCO) 5-325 mg tabletIndicatio ns:Ureteral stone Take 1-2 Tablets by mouth every 6 hours as needed for Pain. Max Daily Amount: 8 Tablets 30 Tablet 5 Active HYDROcodone-jeronimo taminophen (NORCO) 5-325 mg tabletIndicatio ns:Ureteral stone Take 1-2 Tablets by mouth every 6 hours as needed for Pain. Max Daily Amount: 8 Tablets 4 Tablet 5 Active naloxone (NARCAN) 4 mg/spray [place], Non-Aerosol EMERGENCY USE ONLY: Administer 1 spray (4 mg) in one nostril one time. May repeat in alternating nostrils every 2-3 min until responsive or EMS arrives. 2 Each 3 5 Active Encounters Date Type Department Care Team Description 02/15/2025 External Device Data [facility] Provider, Abstract 01/19/2025 External Device Data [facility] Provider, Abstract 01/18/2025 External Device Data [facility] Provider, Abstract 01/18/2025 External Device Data [facility] Provider, Abstract 01/04/2025 Abstract [facility] Urology [address] [facility] [place] [phone] Provider, Abstract 12/21/2024 External Device Data [facility] Provider, Abstract 12/21/2024 External Device Data [facility] Provider, Abstract 12/21/2024 External Device Data [facility] Provider, Abstract 12/14/2024 External Device Data [facility] Provider, Abstract 12/01/2024 External Device Data [facility] Provider, Abstract 11/30/2024 External Device Data [facility] Provider, Abstract 11/30/2024 External Device Data [facility] Provider, Abstract 11/23/2024 11:36 PM CDT - 11/24/2024 2:28 AM CDT Emergency [facility] Medicine [address] [place] [id number] Percy Conrad MD Ureteral stone (Primary Dx) Discharge Disposition: Home or Self Care 11/23/2024 Travel from Last 3 Months Immunizations Immunization Administration Dates Next Due (M-M-R II/PRIORIX)(12 MO UP) MEASLES, MUMPS AND RUBELLA VIRUS VACCINE, 0.5 ML IM/SUBCUT 11/11/2006 (VARIVAX)(12 MOS UP)VARICELL A VIRUS VACCINE (PF) 0.5 ML, SUB CUT 11/11/2006 Dt Dtp Dtap Vaccine 11/11/2006 IPV/OPV 11/11/2006 Family History Medical History Relation Name Comments Healthy Brother Healthy Father Healthy Mother Relation Name Status Comments Brother Alive Father Alive Mother Alive Social History Tobacco Use Types Packs/Day Years Used Date Smoking Tobacco: Never Smokeless Tobacco: Never Tobacco Cessation:Counseling Given: Not Answered Alcohol Use Standard Drinks/Week Comments Never 0 (1 standard drink = 0.6 oz pur e alcohol) Feeling Safe Answer Date Recorded Are you in a relationship wi th someone who hurts you emotionally and/or physically? 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 Gender Identity Not on file Sexual Orientation Not on file Last Filed Vital Signs Vital Sign Reading Time Taken Comments Blood Pressure 144/87 11/24/2024 2:15 AM CDT Pulse 90 11/24/2024 2:15 AM CDT Temperature 37 C (98.6 F) 11/23/2024 11:41 PM CDT Respiratory Rate 19 11/24/2024 2:15 AM CDT Oxygen Saturation 99% 11/24/2024 2:15 AM CDT Inhaled Oxygen Concentration - - Weight 120.9 kg (266 lb 9.6 oz) 025 11:41 PM CDT Height 160 cm (5' 3 ) 11/23/2024 11:41 PM CDT Body Mass Index 47.23 11/23/2024 11:41 PM CDT Plan of Treatment Upcoming Encounters Date Type Department Care Team (Late st Contact Info) Description 02/25/2025 3:00 PM CDT Office Visit [facility] Urology [place] [address] [place] [address] Satinder Ramos NP [facility] [address] [place] [phone] Health Maintenance Due Date Last Done Comments CHLAMYDIA SCREENING (ANNUAL) 11-24 YEARS 2012 HPV VACCINES (1 - 3-dose series) 2016 DTAP/TDAP/TD VACCINES (2 - Tdap) 2020 11/12/19 07 CERVICAL CANCER SCREENING 2022 HPV/Cotest (21-29) 2022 PAP SMEAR 2022 INFLUENZA VACCINE (#1) 2025 HEPATITIS B VACCINES Completed 01/15/2002, 2001, 2001 Procedures Procedure Name Priority Date/Time Associated Diagnosis Comments CT ABDOMEN PELVIS WO CONTRAST Stat 11/24/2024 12:40 AM CDT LIPASE Stat 11/24/2024 12:10 AM CDT COMPREHENSIVE METABOLIC PANEL Stat 11/24/2024 12:10 AM CDT CBC WITH DIFFERENTIAL Stat 11/24/2024 12:10 AM CDT URINALYSIS MICROSCOPY ONLY Stat 11/23/2024 11:53 PM CDT HCG QUALITATIVE, URINE Stat 11:53 PM CDT URINALYSIS W/REFLEX MICROSCOPIC Stat 11/23/2024 11:53 PM CDT from Last 3 Months Results * CT ABDOMEN PELVIS WO CONTRAST (11/24/2024 12:40 AM CDT) Anatomical Region Laterality Modality Abdomen Computed Tomogra phy 11/24/2024 12:2 5 AM CDT Impressions 11/24/2024 10:33 AM CDT IMPRESSION: Proximal left ureteral 5 mm calculus with mild obstructive features. Additional bilateral nonobstructive nephrolithiasis. Narrative 11/24/2024 10:33 AM CDT Exam: CT ABDOMEN PELVIS WO CONTRAST Date/Time of Exam: 11/24/2024 12:40 AM Reason For Exam: Flank pain, stone disease suspected. Diagnosis: See Reason for Exam. Technique: CT of the abdomen and pelvis was performed without the administration of intravenous contrast. Comparison: None. Findings: I agree with the preliminary report. The preliminary report is attached below with possible minor/noncritical modifications. ++++++++++++++++++++ IMPRESSION FINDINGS: Liver: Mild hepatomegaly without discrete lesion. Smooth hepatic contour. Gallbladder and biliary ducts: No gallbladder distension or inflammation. No calcified gallstones are apparent. No common bile duct abnormality is evident. Pancreas: No evidence of pancreatitis. No ductal dilation. Spleen: Spleen is within normal limits. Adrenal glands: Adrenal glands are within expected limits. Kidneys and ureters: 5 mm proximal left ureteral calculus with mild proximal ureterectasis and hydronephrosis. Additional tiny intrarenal calculi within both kidneys. Stomach and bowel: Small bowel is normal caliber. No obstruction. Large bowel within normal limits. No inflammatory wall thickening or abnormal bowel dilatation. Appendix: No evidence of appendicitis. Intraperitoneal space: No free air. No significant fluid collection. Vasculature: No abdominal aortic aneurysm. Lymph nodes: No pathologically enlarged lymph nodes by CT size criteria. Urinary bladder: Unremarkable as visualized. Reproductive: IUD within the uterus. 3.6 cm right ovarian cyst. Bones/joints: No acute osseous abnormalities. Soft tissues: Unremarkable. Procedure Note Gavin Phillips MD - 11/24/2024 Exam: CT ABDOMEN PELVIS WO CONTRAST Date/Time of Exam: 11/24/2024 12:40 AM Reason For Exam: Flank pain, stone disease suspected. Diagnosis: See Reason for Exam. Technique: CT of the abdomen and pelvis was performed without the administration of intravenous contrast. Comparison: None. Findings: I agree with the preliminary report. The preliminary report is attached below with possible minor/noncritical modifications. ++++++++++++++++++++ IMPRESSION FINDINGS: Liver: Mild hepatomegaly without discrete lesion. Smooth hepatic contour. Gallbladder and biliary ducts: No gallbladder distension or inflammation. No calcified gallstones are apparent. No common bile duct abnormality is evident. Pancreas: No evidence of pancreatitis. No ductal dilation. Spleen: Spleen is within normal limits. Adrenal glands: Adrenal glands are within expected limits. Kidneys and ureters: 5 mm proximal left ureteral calculus with mild proximal ureterectasis and hydronephrosis. Additional tiny intrarenal calculi within both kidneys. Stomach and bowel: Small bowel is normal caliber. No obstruction. Large bowel within normal limits. No inflammatory wall thickening or abnormal bowel dilatation. Appendix: No evidence of appendicitis. Intraperitoneal space: No free air. No significant fluid collection. Vasculature: No abdominal aortic aneurysm. Lymph nodes: No pathologically enlarged lymph nodes by CT size criteria. Urinary bladder: Unremarkable as visualized. Reproductive: IUD within the uterus. 3.6 cm right ovarian cyst. Bones/joints: No acute osseous abnormalities. Soft tissues: Unremarkable. IMPRESSION: Proximal left ureteral 5 mm calculus with mild obstructive features. Additional bilateral nonobstructive nephrolithiasis. us Percy Conrad MD CT ORDERABLES Final Re sult * (ABNORMAL) CBC WITH DIFFERENTIAL (11/24/2024 12:10 AM CDT) WBC 9.7 4.0 - 10.0 K/uL 11/24/2024 12:27 AM [facility] RBC 4.89 3.93 - 5.22 M/uL 11/24/2024 12:27 AM [facility] HEMOGLOBIN 13.6 11.2 - 15.7 g/dL 11/24/2024 12:27 AM [facility] HEMATOCRIT 41.4 34.1 - 44.9 % 11/24/2024 12:27 AM [facility] MCV 84.7 79.4 - 94.8 fL 11/24/2024 12:27 AM [facility] MCH 27.8 25.6 - 32.2 pg 11/24/2024 12:27 AM [facility] MCHC 32.9 32.2 - 35.5 g/dL 11/24/2024 12:27 AM [facility] RDW 13.7 11.0 - 14.5 % 11/24/2024 12:27 AM [facility] RDW-STDEV 42.1 36.9 - 56.9 fL 11/24/2024 12:27 AM [facility] PLATELETS 263 163 - 337 K/uL 11/24/2024 12:27 AM [facility] MPV 9.9(L) 10.0 - 14.8 fL 11/24/2024 12:27 AM [facility] NEUTROPHILS 64 34 - 71 % 11/24/2024 12:27 AM [facility] LYMPHOCYTES 27 19 - 52 % 11/24/2024 12:27 AM [facility] MONOCYTES 6 5 - 13 % 11/24/2024 12:27 AM [facility] EOSINOPHILS 2 1 - 6 % 11/24/2024 12:27 AM [facility] BASOPHILS 1 0 - 1 % 11/24/2024 12:27 AM [facility] IMMATURE GRANULOCYTES 0 % 11/24/2024 12:27 AM [facility] NEUTROPHIL ABSOLUTE 6.24(H) 1.56 - 6.13 K/uL 11/24/2024 12:27 AM [facility] LYMPHOCYTE ABSOLUTE 2.60 1.20 - 3.40 K/uL 11/24/2024 12:27 AM CDT [facility] MONOCYTE ABSOLUTE 0.60(H) 0.24 - 0.36 K/uL 11/24/2024 12:27 AM CDT [facility] EOSINOPHIL ABSOLUTE 0.16 0.04 - 0.36 K/uL 11/24/2024 12:27 AM CDT [facility] BASOPHILS ABSOLUTE 0.09(H) 0.01 - 0.08 K/uL 11/24/2024 12:27 AM CDT [facility] IMMATURE GRANULOCYTES ABSOLUTE 0.02 K/uL 11/24/2024 12:27 AM CDT [facility] Blood BLOOD SPECIMEN / Unknown Collection / Unknown 11/24/2024 12:10 AM CDT 11/24/2024 12:17 AM CDT Percy Conrad MD HEMATOLOGY ORDERABLES Fi nal Result Performing Organization Address City/[facility]/ZIP Co de Phone Number [facility] CLIA # [id number] [address] [place] [phone] * LIPASE (11/24/2024 12:10 AM CDT) LIPASE 29 13 - 60 U/L 11/24/2024 12:42 AM CDT [facility] Blood BLOOD SPECIMEN / Unknown Collection / Unknown 11/24/2024 12:10 AM CDT 11/24/2024 12:17 AM CDT Percy Conrad MD CHEMISTRY ORDERABLES Fin al Result Performing Organization Address City/[facility]/ZIP Co de Phone Number [facility] CLIA # [id number] [address] [place] [phone] * COMPREHENSIVE METABOLIC PANEL (11/24/2024 12:10 AM CDT) SODIUM 140 136 - 145 mmol/L 11/24/2024 12:42 AM [facility] POTASSIUM 4.0 3.5 - 5.1 mmol/L 11/24/2024 12:42 AM [facility] CHLORIDE 104 98 - 107 mmol/L 11/24/2024 12:42 AM [facility] CO2 24 22 - 29 mmol/L 11/24/2024 12:42 AM [facility] CALCIUM 10.0 8.6 - 10.0 mg/dL 11/24/2024 12:42 AM [facility] BUN 16 6 - 20 mg/dL 11/24/2024 12:42 AM [facility] CREATININE 0.71 0.51 - 0.95 mg/dL 11/24/2024 12:42 AM [facility] GLUCOSE 89 74 - 99 mg/dL 11/24/2024 12:42 AM [facility] TOTAL PROTEIN 7.7 6.6 - 8.7 g/dL 11/24/2024 12:42 AM [facility] ALBUMIN 4.5 3.5 - 5.2 g/dL 11/24/2024 12:42 AM [facility] BILIRUBIN TOTAL 0.3 0.0 - 1.2 mg/dL 11/24/2024 12:42 AM [facility] ALKALINE PHOSPHATASE 74 35 - 104 U/L 11/24/2024 12:42 AM [facility] AST 18 0 - 35 U/L 11/24/2024 12:42 AM [facility] ALT 17 0 - 35 U/L 11/24/2024 12:42 AM [facility] GFR >60 >=60 mL/min/1.7 3 sq meter 11/24/2024 12:42 AM [facility] Comment:eGFR calculated with 2020 CKD-EPI equation. Vegetarian diet, extremely high or low muscle mass, and may affect results. Cystatin C with Glomerular Filtration Rate is a suitable alternative for these patients. ANION GAP 12 5 - 20 mmol/L 11/24/2024 12:42 AM [facility] Blood BLOOD SPECIMEN / Unknown Collection / Unknown 11/24/2024 12:10 AM CDT 11/24/2024 12:17 AM CDT Percy Conrad MD CHEMISTRY ORDERABLES Fin al Result [facility] CLIA # [id number] [address] [place] [address] * (ABNORMAL) URINALYSIS MICROSCOPY ONLY (11/23/2024 11:53 PM CDT) WBC UA 3-5(A) 0 - 2 /hpf 11/24/2024 12:10 AM CDT [facility] RBC UA 6-10(A) 0 - 2 /hpf 11/24/2024 12:10 AM CDT [facility] BACTERIA UA Negative Negative /hpf 11/24/2024 12:10 AM CDT [facility] EPITHELIAL CELLS, URINE 0-5 0 - 5 /hpf 11/24/2024 12:10 AM CDT [facility] Urine URINE SPECIMEN OBTAINED BY CLEAN CATCH PROCEDURE / Unknown Collection / Unknown 11/23/2024 11:53 PM CDT 11/24/2024 12:06 AM CDT us Percy Conrad MD URINE ORDERABLES Final R esult [facility] CLIA # [id number] [address] [place] [id number] * (ABNORMAL) URINALYSIS WITH REFLEX MICROSCOPIC (11/23/2024 11:53 PM CDT) COLOR UA Yellow Pale to Dark Yellow 11/24/2024 12:10 AM CDT [facility] CLARITY UA Clear Clear 11/24/2024 12:10 AM CDT [facility] SPECIFIC GRAVITY UA 1.025 1.003 - 1.035 11/24/2024 12:10 AM CDT [facility] PH UA 5.5 5.0 - 8.0 11/24/2024 12:10 AM CDT [facility] LEUKOCYTE ESTERASE UA Trace(A) Negative 11/24/2024 12:10 AM CDT [facility] NITRITE UA Negative Negative 11/24/2024 12:10 AM CDT [facility] PROTEIN UA Trace(A) Negative 11/24/2024 12:10 AM CDT [facility] GLUCOSE UA Negative Negative 11/24/2024 12:10 AM CDT [facility] KETONES UA Negative Negative 11/24/2024 12:10 AM CDT [facility] UROBILINOGEN UA 0.2 <2.0 mg/dL 12:10 AM T [facility] BILIRUBIN UA Negative Negative 11/24/2024 12:10 AM T [facility] BLOOD UA 2+(A) Negative 11/24/2024 12:10 AM T [facility] Urine URINE SPECIMEN OBTAINED BY CLEAN CATCH PROCEDURE / Unknown Collection / Unknown 11/23/2024 11:53 PM CDT 11/24/2024 12:06 AM CDT us Percy Conrad MD URINE ORDERABLES Final [id number] [address] [place] [id number] * HCG QUALITATIVE, URINE (11/23/2024 11:53 PM CDT) HCG QUAL URINE Negative Negative 11/24/2024 12:10 AM CDT [facility] COLOR UA Yellow Pale to Dark Yellow 11/24/2024 12:10 AM CDT [facility] CLARITY UA Clear Clear 11/24/2024 12:10 AM CDT [facility] Urine URINE SPECIMEN OBTAINED BY CLEAN CATCH PROCEDURE / Unknown Collection / Unknown 11/23/2024 11:53 PM CDT 11/24/2024 12:06 AM CDT us Percy Conrad MD URINE ORDERABLES Final R esult [id number] [address] [place] [phone] from Last 3 Months Insurance [facility] Care Teams Athletics Director Relationship Specialty Start Date End Date Loraine Messina DO NO ADDRESS ON FILE PCP - General Family Practice 04/27/10
--- OUTSIDE RECORDS SUMMARY | 2025-02-19 23:03 | XMS_ITS | Encounter Summary ---
Author Organization [facility] Address [address] [place] [address] Care Team Providers Care Embroidery Designer Name Role Phone Loraine Messina DO Primary Care Provide r Unavailable Encounter Details Date Type Department Care Team (Late st Contact Info) Description 02/15/2025 External Device Data [facility] Provider, Abstract NO ADDRESS ON FILE Social History Tobacco Use Types Packs/Day Years Used Date Smoking Tobacco: Never Smokeless Tobacco: Never Alcohol Use Standard Drinks/Week Comments Never 0 (1 standard drink = 0.6 oz pur e alcohol) Feeling Safe Answer Date Recorded Are you in a relationship wi th someone who hurts you emotionally and/or physically? 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 Gender Identity Not on file Sexual Orientation Not on file documented as of this encounter Plan of Treatment Upcoming Encounters Date Type Department Care Team (Late st Contact Info) Description 02/25/2025 3:00 PM CDT Office Visit [facility] Urology [address] [place] [address] Satinder Ramos NP [address] [place] [phone] documented as of this encounter Visit Diagnoses Not on filedocumented in this encounter Care Teams Embroidery Designer Relationship Specialty Start Date End Date Loraine Messina DO NO ADDRESS ON FILE PCP - General Family Practice 04/27/10 documented as of this encounter
--- NOTE | 2025-02-19 23:53 | ED_ITS ---
HPI - Extremity Problem General: Chief complaint: Extremity Injury, Lower Stated complaint: Right knee injury Time Seen by Provider: 02/19/25 22:54 Source: patient Mode of arrival: ambulatory Limitations: no limitations History of Present Illness: Patient is a 24-year-old female who presents the emergency department planing of right knee injury after tripping and falling onto plywood while at work. States this is a work-related injury and she needs a drug screen and alcohol level drawn. States she has been able to walk but is having lots of pain to the anterior right knee where there is an abrasion noted. No other injuries, no distal neurovascular deficits. MD Complaint: joint pain Onset (ago): minute(s) Location: right and knee Associated symptoms: Deny chest pain, fever(s) or rash Related Data Home Medications ?Medication ?Instructions ?Recorded ?Confirmed levonorgestrel (Mirena) 1 device intrauterine .Q8Y 1 08/06/22 11/24/24 tirzepatide 2.5 mg/0.5 mL 20 mg SUBCUT 11/08/24 subcutaneous pen injector (Mounjaro) tirzepatide 10 mg/0.5 mL See Rx Instructions .Route . COMPLEX 11/24/24 11/24/24 subcutaneous pen injector (Mounjaro) Previous Rx's ?Medication ?Instructions ?Recorded hydrocodone 5 mg-acetaminophen 325 1 tab PO Q6H PRN pa in #20 tabs 11/24/24 mg tablet naloxone 4 mg/actuation nasal 4 mg intranasal Q2M PRN opioid 11/24/24 spray (Narcan) overdose #2 ea promethazine 25 mg tablet 25 mg PO Q6H PRN nausea and 11/24/24 vomiting #20 tabs tamsulosin 0.4 mg capsule 0.4 mg PO DAILY #20 caps 05/10 Allergies Allergy/AdvReac Type Severity Reaction Status Date / Time nitrofurantoin (From Allergy Mild ALGY-Hives Verified 11/24/24 14:43 Macrobid) Review of Systems General: Reports: 10 or more systems reviewed and unremarkable except in HPI and below Const: Denies: fever(s) or chills Card: Denies: chest pain Resp: Denies: dyspnea or productive cough GI: Denies: abdominal pain, nausea, vomiting or diarrhea : Denies: flank pain Musc: Reports: joint pain (Right knee); Denies: neck pain, back pain, extremity pain, extremity swelling, joint swelling, joint redness, joint warmth, limited range of motion or muscle weakness Skin/Breast: Reports: skin pain and new lesions (Abrasion to right knee); Denies: rash Neuro: Denies: headache(s), numbness in extremities or weakness in extremities PFSH ED PFSH: Family History Mother Diabetes Psychiatric illness Depression Chronic kidney disease (CKD) Hypertension Grandmother No problems noted. Family/Other Stroke maternal aunt Heart disease maternal aunt Denies family history of Colon cancer Ovarian cancer Clotting disorder Hyperlipidemia Breast cancer Anesthesia complication Bleeding disorder Uterine cancer Thyroid disease Social History Smoking and tobacco/nicotine status: never used tobacco/nicotine Second hand smoke exposure: No Alcohol intake: never Substance/Drug Use: never Physical Exam Const: COMMON NORMALS: no acute distress, patient oriented x3, no limitations, healthy appearing, alert and well nourished HENMT: COMMON NORMALS: normocephalic and atraumatic HEAD & SCALP: normocephalic and atraumatic Neck/C-Spine: COMMON NORMALS: full ROM, supple and no meningeal signs Resp: COMMON NORMALS: normal respiratory effort, No use of accessory muscles and clear to auscultation bilaterally AUSCULTATION: clear to auscultation bilaterally Cardio: COMMON NORMALS: regular rate and regular rhythm RATE: regular rate RHYTHM: regular rhythm Extremity: COMMON NORMALS: full ROM, capillary refill normal, no joint enlargement and no clubbing, cyanosis or edema NARRATIVE EXTREMITY EXAM: Normal ambulation. Neurovascular exam to right lower extremity normal. Diffuse tender to palpation to right knee, no swelling. Neuro: COMMON NORMALS: patient oriented x3, moves all extremities, no focal motor deficits and no sensory deficits noted SENSORIUM/ORIENTATION: Yes alert MENINGEAL SIGNS: Yes no meningeal signs Skin: NARRATIVE SKIN EXAM: Skin tear/abrasion to right knee with no active bleeding Course Vital Signs: Vital signs: Vital Signs Temperature 98.1 F 02/19/25 22:58 Pulse Rate 123 H 02/19/25 22:58 Respiratory Rate 20 H 02/19/25 22:58 Blood Pressure 123/89 02/19/25 22:58 Pulse Oximetry 100 02/19/25 22:58 Oxygen Delivery Me thod Room Air 02/19/25 22:58 MDM - Extremity (Nontraumatic) Medical Decision Making Patient presenting with work-related injury, fell onto her right knee directly on the plywood. There was an abrasion/skin tear on exam, did not require pro cedural closure and will be dressed prior to discharge. X-ray was negative for any acute findings, UDS and blood alcohol is obtained for work related injury purposes. Will be allowed discharge home. Lab Data Radiology Impressions Knee X-Ray 02/19/25 22:54 IMPRESSION: No acute findings. Laboratory Results Ethyl Alcohol < 10 mg/dL (0-10) 02/19/25 23:35 XR interpretation done by ED provider, pending radiology final review ED provider radiology interpretation(s): X-ray right knee does not demonstrate any acute abnormality. Discharge Plan Discharge Patient Disposition: Home Clinical Impression: Work related injury Abrasion of knee, right Qualifiers: Encounter type: initial encounter Qualified Code(s): S80.211A - Abrasion, right knee, initial encounter Condition: Stable Prescriptions: No Action Mirena 21 mcg/24 hours (8 yrs) 52 mg intrauterine device 1 device intrauterine .Q8Y Mounjaro 2.5 mg/0.5 mL pen injector 20 mg SUBCUT Mounjaro 10 mg/0.5 mL Pen Injector See Rx Instructions .ROUTE .COMPLEX Rx Instructions: Give 15 units (3mg) subcutaneously every 7 days on Fridays hydrocodone-acetaminophen 5-325 mg tablet 1 tab PO Q6H PRN (Reason: pain) Qty: 20 0RF promethazine 25 mg tablet 25 mg PO Q6H PRN (Reason: nausea and vomiting) Qty: 20 0RF tamsulosin 0.4 mg capsule 0.4 mg PO DAILY Qty: 20 0RF naloxone [Narcan] 4 mg/actuation spray,non-aerosol 4 mg intranasal Q2M PRN (Reason: opioid overdose) Qty: 2 0RF Rx Instructions: spray 1 dose into ONE nostril; alternate nostrils w each dose until help arrives Discharge Orders: Discharge ED (Routine); Ordered 02/19/25 Ordered By: Satinder Andino Referrals: Graham Sosa MD [Primary Care Provider, [facility]] Patient Instructions: Patient Portal & Jose Instructions Activity Restrictions/Additional Instructions: Knee Abrasion Discharge Instructions Diagnosis: Right knee abrasion following work-related injury. X-ray imaging was normal, with no evidence of fracture or internal derangement. Urine drug screen and blood alcohol testing were performed per workplace and trauma protocols. Wound Care: - Cleanse the abrasion gently with mild soap and water. Avoid harsh scrubbing, which may delay healing or increase risk of infection. - Debridement is not required unless there is retained debris or devitalized tissue. If present, gentle removal is recommended.[1] https://pubmed.ncbi.nlm.nih.gov/91636628 - Apply a non-adherent sterile dressing to maintain a moist wound environment and protect against contamination. Change the dressing daily or if it becomes wet or soiled. - Monitor for signs of infection: increasing redness, warmth, swelling, pain, purulent drainage, or fever. If any of these occur, prompt medical evaluation is indicated.[1] https://pubmed.ncbi.nlm.nih.gov/73104922 Pain Management: - For mild pain, acetaminophen or NSAIDs (e.g., ibuprofen) are appropriate fir st-line options, unless contraindicated. Opioid analgesics are not indicated for isolated abrasions and may delay return to work.[2] https://pubmed.ncbi.nlm.nih.gov/16660458 [3] https://pub med.ncbi.nlm.nih.gov/63607525 - Advise against use of topical antibiotics unless the wound is at high risk for infection or contamination, as routine use does not improve outcomes.[1] https://pubmed.ncbi.nlm.nih.gov/83243654 Activity and Return to Work: - Early mobilization is encouraged. The patient may resume work duties as tolerated, with modifications if pain or wound location limits function. Return to work should not be unnecessarily delayed and should be communicated as an expected outcome.[2] https://pubmed.ncbi.nlm.nih.gov/19162157 [4] https://pubmed.ncbi.nlm.nih.gov/42160941 - If the job involves kneeling, heavy lifting, or exposure to contaminants, consider temporary accommodations such as modified duties or protective padding until the abrasion has healed.[5] https://pubmed.ncbi.nlm.nih.gov/67609725 [4] https://pubmed.ncbi.nlm.nih.gov/66482471 - Advise avoidance of activities that may cause further trauma to the affected knee until the wound is fully healed. Follow-Up: - Routine follow-up is not required for uncomplicated abrasions. Advise follow- up if signs of infection develop, wound healing is delayed (>2 weeks), or if there is persistent pain or functional limitation.[1] https://pubmed.ncbi.nlm.nih.gov/43759637 [6] https://sara network.com/journals/jamapediatrics/fullarticle/10.1001/jamapediatrics.2020.6130 ?utm_source=openevidence&utm_medium=referral - If workplace policies require, provide documentation of injury, treatment, and readiness for return to work, including results of urine drug screen and blood alcohol testing. Substance Use Screening: - Urine drug screen and blood alcohol testing were performed in accordance with trauma center and workplace protocols. These tests are recommended for trauma patients to identify substance use that may impact recovery or workplace safety. [7] https://www.[employer]/media/wgat77um/aykzdq-tfffmx-dlalgjghkn.pdf - If results are positive, consider referral for brief intervention and further assessment per Screening, Brief Intervention, and Referral to Treatment (SBIRT) protocols.[7] https://www.[employer].org/media/xaxb48ei/hapdwz-iuuliz-fxyglporne.pdf [8] https://pubmed.ncbi.nlm.nih.gov/16663762 Patient Education: - Educate the patient on proper wound care, signs of infection, and the importance of early return to work. - Discuss the impact of substance use on injury risk and recovery, and offer resources for support if indicated.[7] https://www.[employer]/media/fceu09vn/qyonce-ktswcw-uqvlpyflvl.pdf [8] https://pubmed.ncbi.nlm.nih.gov/22706689 Documentation: - Ensure accurate and legible documentation of injury location, date, time, mechanism, and workplace context, as required for workers' compensation and occupational health.[2] https://pubmed.ncbi.nlm.nih.gov/82828696 Summary: The patient is medically stable for discharge with instructions for wound care, pain management, and return to work. No evidence of fracture or internal knee injury. Substance use screening completed per protocol. References * [employer] Position Statement: Management of Acute Skin Trauma https://pubmed.ncbi.nlm.nih.gov/28455841 . Phillip JW, Paula B, Sharon WR, Nicole M. Journal of Athletic Training. 2016;51(12):2671-2309. doi:10.4085/5901-7950-70.7.01. * Evaluation and Management of the Acutely Injured Worker https://pubmed.ncbi.nlm.nih.gov/83075546 . Dyllan G, Gonsalo BA, Talat R, Adelina R. [employer]. 2014;89(1):17-24. * Clinical Practice Guidelines for Pain Management in Acute Musculoskeletal Injury https://pubmed.ncbi.nlm.nih.gov/55514553 . Howell JR, Rai H, Jamie MK, [place] RB. Journal of Orthopaedic Trauma. 2019;33(5):w721-s947. doi:10.1097/BOT.[id number]. * Return to Work After Work-Related Injuries: A Systematic Review and Erin- Analysis of Incidence and Determinants https://pubmed.ncbi.nlm.nih.gov/81482082 . Andrea W, Peterson C, Sean R, et al. Journal of Clinical Medicine. 2024;14(12):4343. doi:10.3390/ptp90668116. * Workplace Accommodations Following Work-Related Mild Traumatic Brain Injury: What Works? https://pubmed.ncbi.nlm.nih.gov/89829750 . Key Browning, Blaze Perez, David A, Almaz E, Kate M. Disability and Rehabilitation. 2020;42(4):552-561. doi:10.1080/08938746.2018.3095562. * Acute Knee Injuries in Children and Adolescents: A Review https://jamanet work.com/journals/jamapediatrics/fullarticle/10.1001/jamapediatrics.2020.6130? utm_source=openevidence&utm_medium=referral . Michael Alberto Sweeney E. [employer]. 2020;175(6):624-630. doi:10.1001/jamapediatrics.2020.6130. * Best Practices Guidelines Screening And Intervention For Mental Health Disorders And Substance Use And Misuse In The Acute Trauma Patient htt ps://www.facs.org/media/mvan67uv/kcnurw-pstkct-bejzhwwgkl.pdf . Micaela Sorto MD MPH, Hamida Osman PhD MS, Simón Martinez MD [facility], et al. [employer] (2021). * Alcohol-Related Trauma Reinjury Prevention With Hospital-Based Screening in Adult Populations: An [employer] Association for the Surgery of Trauma Evidence- Based Systematic Review https://pubmed.ncbi.nlm.nih.gov/81065901 . Cynthia ORDONEZ, Buster BrowningJ, Denise D, et al. The Journal of Trauma and Acute Care Surgery. 2020;88(1):106-112. doi:10.1097/TA.[id number]. Print Language: Ghanaian Coding Level of Care Code ED [employer] for Saul Ch
[2025-02-20 00:03] LABS: Alcohol Level < 10 mg/dL (0-10)
== END 2025-02-20 00:21 | disposition home or self-care (01) ==
PROVIDERS: Emergency Provider Physician Assistant; PCP Family Medicine
DX: S80.211A Abrasion, right knee, initial encounter (principal); W01.0XXA Fall on same level from slipping, tripping and stumbling without subsequent striking against object, initial encounter
CPT/HCPCS: 36415; 73562; 80307; 99283

== ENCOUNTER → 2025-02-20 13:21 | Outpatient (BNVA) | payer OTHER, SELFPAY | PROVIDERS: PCP Family Medicine; Visit Provider Registered Nurse Neonatal Intensive Care | DX: R39.9 Unspecified symptoms and signs involving the genitourinary system (principal) | CPT/HCPCS: 81000 ==

== ENCOUNTER → 2025-03-09 08:31 | Outpatient (BNVA) | payer OTHER, SELFPAY | PROVIDERS: PCP Family Medicine; Visit Provider Nurse Practitioner Women's Health | DX: R30.0 Dysuria (principal) | CPT/HCPCS: 84315 ==

== ENCOUNTER → 2025-05-29 13:58 | Outpatient (BNVA) | payer OTHER, SELFPAY | PROVIDERS: PCP Family Medicine; Visit Provider Emergency Medicine | DX: R30.0 Dysuria (principal) | CPT/HCPCS: 81000 ==